=== PATIENT | male | born 1960 | race African-American/Black ===

== ENCOUNTER 2020-11-04 11:42 | Emergency (ER) | payer MEDICAID, OTHER ==
[~2020-11-04] VITALS: Ht 172.7 cm; Wt 62.0 kg
[2020-11-04 16:27] VITALS: BP 130/77
== END 2020-11-04 16:32 | disposition home or self-care (01) ==
LOC: ER 11:42
DX: S82.401A Unspecified fracture of shaft of right fibula, initial encounter for closed fracture (principal); E11.9 Type 2 diabetes mellitus without complications; I10 Essential (primary) hypertension; X58.XXXA Exposure to other specified factors, initial encounter; Y93.89 Activity, other specified; Y92.89 Other specified places as the place of occurrence of the external cause; Y99.8 Other external cause status
CPT/HCPCS: 29505; 73562; 73610; 99284